=== PATIENT | female | born 1950 | race Caucasian/White ===

== ENCOUNTER 2018-06-14 18:08 | Inpatient (IN) ==
[2018-06-14] MEDS ORDERED: LORazepam 0.5 MG Tablet PO PRN (21:48)
[2018-06-14] MEDS ORDERED: Aluminum/Magnesium/Simethacone Susp 30 ML UDC PO PRN (21:48)
[2018-06-14] MEDS ORDERED: Acetaminophen 325 MG Tablet PO PRN (21:48)
[2018-06-15] MEDS: lamoTRIgine 25 MG TABLET PO SCH ×2 (10:33→20:58)
[2018-06-15] MEDS: Sertraline 50 MG Tablet PO SCH (10:34)
--- NOTE | 2018-06-15 12:18 | P.HPPSY ---
Provisional Diagnosis Admission Date: June 14, 2018 18:54 Challis I.: Bipolar disorder most recent episode depressed Anxiety disorder unspecified Challis III.: Arthritis Acute urinary tract infection Competence Certification of Person's Competence To Provide Express and Informed Consent I have personally examined Sathya Keane, a person being served at [facility] on, June 15, 2018 1205. Express and informed consent means consent voluntarily given in writing, by a competent person, after sufficient explanation and disclosure of the subject matter involved to enable the person to make a knowing and willful decision without any element of force, fraud, deceit, duress, or other form of constraint or coercion. This person is 18 years of age or older, is not now known to be incompetent to consent to treatment with a guardian advocate, and does not have a health care surrogate or proxy currently making medical treatment decisions. I have found this person to be one of the following: [xxx] Competent to provide express and informed consent, as defined above, for voluntary admission to this facility and is competent to provide express and informed consent for treatment. He/she has the consistent capacity to make well reasoned, willful, and knowing decisions concerning his or her medical or mental health treatment. The person fully and consistently understands the purpose of the admission for examination/placement and is fully capable of personally exercising all rights assured under [place] Incompetent to provide express and informed consent to voluntary admission, and this is incompetent to provide express and informed consent to treatment. The person must be transferred to involuntary status and a petition for a guardian advocate filed with the Circuit Court. [] Refusing to provide express and informed consent to voluntary admission but is competent to provide express and informed consent for treatment. The person must be discharged or transferred to involuntary status. Form shall be completed within 24 hours of a person's arrival at the receiving facility and filed in the clinical record of each person: 1. Admitted on a voluntary basis 2. Permitted to provide express and informed consent to his/her own treatment 3. Allowed to transfer from involuntary to voluntary status 4. Prior to permitting a person to consent to his or her own treatment after having been previously found incompetent to consent to treatment. History of Present Illness Capacity: Has capacity Chief Complaint: Depression with thoughts of ending her life History of Present Illness: The patient is a 68-year-old female who was a direct transfer to [facility] inpatient psych unit from [facility] under a medical physicians Lynch act order for depression and suicidal ideations. According to the Lynch act report, the patient has a history of depression and presented complaining of auditory hallucinations and a plan to hurt her self. Patient reports that it was her son who became concerned and took her to the hospital. The patient admits to "I have been very anxious and nervous I cannot eat and I cannot sleep I have episodes of confusion and racing thoughts and I cannot pinpoint why I am feeling this way." Patient reports that she last felt stable "a few months ago" and cannot recall any specific stress that led to a decrease in her mood. She reports that she did move in with a friend a couple months ago but she reports that the friend and her are getting along fine. She denies any conflict with family and denies any financial stressors. As for her depression, she endorses a worsening depression and irritability over the last 2 months with symptoms of increased need for sleep, decreased interest, increased feelings of hopelessness and helplessness, decreased energy , decreased concentration, decreased appetite, decreased psychomotor activity, and fleeting thoughts that she would rather be . She denies any plans preparations or intent to kill herself. As for anxiety, she reports chronic anxiety characterized as chronic worries and intermittent anxiety attacks with intermittent bouts of a Gilbert phobia. She admits that her anxiety and fear of leaving the house has worsened over the last couple of months. She reports having anxiety attacks daily. As for psychosis, the patient and endorses that she is "hearing things" but she cannot understand what is being said or at least will not admit to it. She denies any paranoid delusions. She denies a history of auditory hallucinations prior to this past month. As for arsalan, patient reports cyclical moods that are mostly depressed but intermittently high moods with increased goal-directed activity decreased need for sleep and increased irritability with others. Patient reports that she feels like she is in 1 of her depressed moods currently. Past psychiatric history: Past Diagnoses: Bipolar disorder, anxiety disorder Hospitalizations: Patient reports 4 prior hospitalizations the last was in 2017 Suicidal behavior: Patient admits to overdose on pills many years ago Past psychotropic medication trials: The patient has most recently been tried on Zoloft 50 mg a day and Lamictal 25 mg twice a day, started approximately 6 weeks ago by her outpatient psychiatrist. Patient is also been treated with Zyprexa and Prozac in the past but were ineffective. She also reports lithium was ineffective. She has allergies to Depakote and Seroquel. Outpatient MH treatment: Patient reports being followed by the [facility] clinic in [place]. She was last seen approximately 4 weeks ago. Substance Use Treatment: Denies Abuse/assault history: Denies Family psychiatric history: Patient's son has PTSD from combat. She denies any history of suicides in her family Psychosocial history: Patient was born and raised in [place] [facility]. 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 She has been and twice and has 2 adult sons. She currently lives with a roommate in the [facility] area. She denies ever being on disability and currently collects income from Social Security. She denies any history of arrests and no acute legal stressors. Substance Use history: Urine drug scree on exam in ED was negative. Tobacco use: Denies Alcohol use: Denies Cannabis use: Denies Stimulant use: Denies Opiate use: Denies Prescription drug abuse: Denies Past medical history: Contributing medical conditions include--arthritic pain and an acute UTI. She denies a history of seizures. Lab results: Lab results from [facility] were reviewed and were significant only for a urinalysis consistent with a urinary tract infection. - Inpatient Certification I certify that the inpatient services were ordered in accordance with Medicare regulations governing the order. This includes certification that hospital inpatient services are reasonable and necessary and in the case of services not specified as inpatient-only under 42 CFR 419.22(n), that they are appropriately provided as inpatient services in accordance to with the 2-midnight benchmark under 43 CFR 412.3(e) I certify that inpatient psychiatric hospital services are medically necessary. Evaluation and treatment and/or diagnostic testing are expected to improve the patient's condition. The patient needs on a daily basis, active treatment furnished directly by or requiring the supervision of inpatient psychiatric facility personnel. Estimated Total Length of Stay (Days): 5 Plans for Post Hospital Care: Home Review of Systems Constitutional: Reports fatigue, Reports weight loss Eyes: Denies change in vision Ears, Nose, Mouth, and Throat: Denies nasal congestion, Denies pain with swallowing Cardiovascular: Denies chest pain, Denies fast heart rate Respiratory: Denies chest congestion, Denies shortness of breath with activity Genitourinary: Reports painful urination Musculoskeletal: Reports joint pain PMFSH - Substance Use History Substance History: No History of Abuse - Substance Use Type Other Comment: Patient denies any past/present history of substance use, denies past/ present use of alcohol and denies past/present use of cigarettes. Medications and Allergies Active Medications: Active Medications Acetaminophen (Tylenol) 650 mg PO Q4H PRN PRN Reason: Pain 1-5 or Temp >101F Al Hydrox/Mg Hydrox/Simethicone (Mag-Al Plus Susp Liq) 30 ml PO Q6H PRN PRN Reason: DYSPEPSIA Al Hydroxide/Mg Hydroxide (Milk Of Magnesia Liq) 30 ml PO DAILY PRN PRN Reason: Mild Constipation Hydroxyzine HCl (Atarax) 50 mg PO Q6H PRN PRN Reason: anxiety or insomnia Lamotrigine (Lamictal) 50 mg PO BID [facility] Last Admin: 06/15/18 10:33 Dose: 50 mg Lorazepam (Ativan) 0.5 mg PO Q12H PRN PRN Reason: MODERATE TO SEVERE ANXIETY Lorazepam (Ativan Inj) 0.5 mg IM Q12H PRN PRN Reason: MODERATE TO SEVERE ANXIETY Lurasidone HCl (Latuda) 20 mg PO DAILY [facility] Last Admin: 06/15/18 10:37 Dose: 20 mg Miscellaneous (Pill Splitter) 1 each [facility] Sertraline HCl (Zoloft) 50 mg PO DAILY [facility] Last Admin: 06/15/18 10:34 Dose: 50 mg Allergies Allergy/AdvReac Type Severity Reaction Status Date / Time aspirin Allergy Severe Nausea/Vomi Verified 06/15/18 10:31 ting diphenhydramine Allergy Severe Hives Verified 06/15/18 10:31 divalproex sodium Allergy Severe Psychosis Verified 06/15/18 10:31 [From Depakote] ibuprofen Allergy Severe Headache Verified 06/15/18 10:31 penicillin G Allergy Severe Hives Verified 06/15/18 10:31 quetiapine [From Seroquel] Allergy Severe Psychosis Verified 06/15/18 10:31 Sulfa (Sulfonamide Allergy Severe Nausea/Vomi Verified 06/15/18 10:31 Antibiotics) ting Home Medications Medication Instructions Recorded Confirmed Type lamotrigine 25 mg PO BID 06/14/18 06/14/18 History sertraline 50 mg PO DAILY 06/14/18 06/14/18 History Results - Labs Labs: Laboratory Results - last 24 hr 06/15/18 05:56 POC Glucose 85 Exam Vital signs: Vital Signs 06/14/18 18:55 06/15/18 05:22 Temperature 98.3 F 97.6 F Pulse Rate 60 66 Respiratory Rate 16 16 Blood Pressure 113/67 103/70 Pulse Oximetry 98 97 Intake & Output 06/14/18 06/15/18 06/15/18 18:59 06:59 18:59 Intake Total 360 / 360 Balance 360 / 360 Weight 63.3 kg 63.3 kg Intake: Oral 360 / 360 Other: Weight On Admission 63.3 kg Mental Status Examination Appearance: Disheveled Consciousness: Alert Orientation: x4 Motor Activity: Normal gait Speech: Hesitant Language: Adequate Fund of Knowledge: Adequate Attention and Concentration: Adequate Memory: Unremarkable Mood: Sad, Anxious Affect: Blunt, Other (Dysphoric) Thought Process & Associations: Intact, Logical, Goal directed Thought Content: Appropriate Hallucination Type: None Delusion Type: None Suicidal Ideation: Yes (Passive) Suicidal Plan: No Suicidal Intention: No Homicidal Ideation: No Insight: Fair Judgment: Impulsive Assessment and Plan - Assessment (1) Bipolar disorder, most recent episode depressed Code(s): F31.30 - Bipolar disorder, current episode depressed, mild or moderate severity, unspecified Status: Acute (2) Anxiety disorder, unspecified Code(s): F41.9 - Anxiety disorder, unspecified Status: Acute - Plan Plan: 1. Continue with admission to inpatient psychiatry at [facility]; convert to voluntary/competent legal status. 2. Routine unit precautions. 3. Comfort medications ordered for as needed treatment of constipation, heartburn, diarrhea, and mild pain. 4. Hydroxyzine 50mg po q6H prn anxiety/insomnia. 5. Restart her Zoloft 50 mg a day. We will stay on this low dose due to her history of bipolar disorder would consider increase after stabilized on a therapeutic dose of a mood stabilizer. 6. Restart her Lamictal and increase to 50 mg twice a day. 7. Start Latuda 20 mg a day for adjunctive treatment of bipolar depression. Consider titration up to 60 mg a day while in the hospital if tolerated. 8. Repeat urinalysis in the morning with in-house culture to evaluate whether the one-time dose of Macrobid in the ER was sufficient. 9. patient will participate in the unit programming to include group therapies , milieu therapy and recreational therapies. 10. Discharge planning: The patient already has established care with the [facility] in [place]. Estimated LOS: 5 days Justification for Continued Inpatient Stay: Patient is a 68-year-old female with a history of bipolar diagnosis with 4 prior hospitalizations and one prior suicide attempt presents with a 2-month history of worsening mood and anxiety that has not responded by her outpatient clinics most recent effort to treat with low-dose Zoloft and Lamictal. Patient is now having severe symptoms of depression with incomplete auditory hallucinations. We discussed risk benefits side effects alternatives and she chooses to continue her Zoloft and Lamictal but titrate to more therapeutic doses and use Latuda as an adjunct treatment for bipolar depression.
[2018-06-15 14:36] LABS: Bacteria,Urine Many /hpf; Bilirubin,Urine Negative (Negative); Clarity,Urine Cloudy (Clear); Color,Urine Amber (Yellw/Straw); Glucose,Urine (UA) Negative (Negative); Leukocyte Esterase,Urine Large (Negative); Mucus,Urine Few /lpf (Occasional); Nitrite,Urine Negative (Negative); Specific Gravity,Urine 1.025 (1.002-1.035); Squamous Epithelial Cell,Urine 19 /hpf (0-5)
[2018-06-16] MEDS: lamoTRIgine 25 MG TABLET PO SCH ×2 (08:21→20:14)
[2018-06-16] MEDS: Sertraline 50 MG Tablet PO SCH (08:23)
[2018-06-16 08:28] LABS: Free T4 (Free Thyroxine) 1.27 ng/dL (0.76-1.46); Thyroid Stimulating Hormone 0.616 uIU/mL (0.358-3.740)
--- NOTE | 2018-06-16 10:11 | P.PNPSY ---
Subjective Chief Complaint: Depression with thoughts of ending her life Remarks: Patient seen for follow-up, chart reviewed, patient discussed with nursing staff ; we reviewed the patient's mood, thoughts, and behaviors from overnight and this morning. Nursing reports patient slept 5 hours overnight and appeared restless. She is described as thought blocking but denies auditory or visual hallucinations and denies suicidal ideations. Patient is also described as seclusive to her room for most of the day yesterday. Patient however was observed on the unit to be pacing the halls and at times sitting in the day room. Patient complains of restlessness and anxiety and requested a as needed. She denies upset stomach dizziness headaches or discomfort since start of current medication profile. She denies dysuria or abdominal pain. She continues to express understanding and satisfaction with the treatment plan. Review of Systems All other systems reviewed negative except as stated in HPI Mental Status Examination Appearance: Disheveled Consciousness: Alert Orientation: x4 Motor Activity: Normal gait Speech: Hesitant Language: Adequate Fund of Knowledge: Adequate Attention and Concentration: Adequate Memory: Unremarkable Mood: Sad, Anxious Affect: Blunt, Other (Dysphoric) Thought Process & Associations: Intact Thought Content: Appropriate, Thought blocking Hallucination Type: None Delusion Type: None Suicidal Ideation: Yes (Passive) Suicidal Plan: No Suicidal Intention: No Homicidal Ideation: No Insight: Fair Judgment: Impulsive Assessment and Plan - Assessment (1) Bipolar disorder, most recent episode depressed Code(s): F31.30 - Bipolar disorder, current episode depressed, mild or moderate severity, unspecified Status: Acute (2) Anxiety disorder, unspecified Code(s): F41.9 - Anxiety disorder, unspecified Status: Acute - Plan Plan: June 15, 2018. Initial assessment and plan: Patient is a 68-year-old female with a history of bipolar diagnosis with 4 prior hospitalizations and one prior suicide attempt presents with a 2-month history of worsening mood and anxiety that has not responded by her outpatient clinics most recent effort to treat with low-dose Zoloft and Lamictal. Patient is now having severe symptoms of depression with incomplete auditory hallucinations. We discussed risk benefits side effects alternatives and she chooses to continue her Zoloft and Lamictal but titrate to more therapeutic doses and use Latuda as an adjunct treatment for bipolar depression. 1. Continue with admission to inpatient psychiatry at [facility]; convert to voluntary/competent legal status. 2. Routine unit precautions. 3. Comfort medications ordered for as needed treatment of constipation, heartburn, diarrhea, and mild pain. 4. Hydroxyzine 50mg po q6H prn anxiety/insomnia. 5. Restart her Zoloft 50 mg a day. We will stay on this low dose due to her history of bipolar disorder would consider increase after stabilized on a therapeutic dose of a mood stabilizer. 6. Restart her Lamictal and increase to 50 mg twice a day. 7. Start Latuda 20 mg a day for adjunctive treatment of bipolar depression. Consider titration up to 60 mg a day while in the hospital if tolerated. 8. Repeat urinalysis in the morning with in-house culture to evaluate whether the one-time dose of Macrobid in the ER was sufficient. 9. patient will participate in the unit programming to include group therapies , milieu therapy and recreational therapies. 10. Discharge planning: The patient already has established care with the [facility] in [place]. Estimated LOS: 5 days June 16, 2018: Unsatisfactory response to initial treatment; the patient has tolerated medication adjustments but she continues to endorse passive suicidal ideations and her thought processes are mildly disorganized with evidence of thought blocking. The patient has been less seclusive with encouragement today but she is complaining of anxiety and requesting as needed anxiolytics. Patient 's repeat urinalysis was significant for extreme elevations in white blood cell counts red blood cell counts and leukoesterase therefore consult placed to hospitalist for evaluation and treatment. Continue inpatient psychiatric treatment and stabilization; voluntary status. Continue Ativan 0.5 mg every 12 hours as needed for anxiety. We will consider increase in dose and frequency if anxiety worsens. Discontinue Atarax as needed for anxiety due to patient's reported allergies to antihistamines. Hospitalist consulted to evaluate severe UTI. Discharge planning: The patient already has established care with the [facility] in [place] Justification for Continued Inpatient Stay: Patient remains an elevated risk for self-harm by self neglect and suicide and therefore will require further inpatient stabilization and preparation of a safe discharge plan. Moving patient to a less restrictive environment at this time may result in decompensation.
--- NOTE | 2018-06-16 13:10 | P.CONIM ---
History of Present Illness Primary Care Provider: UNKNOWN History of Present Illness: his patient is a 68 y/o F with depression, bipolar disorder, who was sent from [facility] under a bakers act for suicidal ideation. She is currently being treated by psychiatry for her mental health issues and the internal medicine team was consulted to evaluate and treat the patient for a suspected urinary tract infection. Review of Systems All other systems reviewed negative except as stated in HPI PMFSH - History History Provided By: Patient - Medical History Medical History: Medical History (Last Updated 06/15/18 @ 15:44 by Mell Adan RN) Bipolar disorder Depression H/O suicide attempt Suicidal ideation - Family History Family History: Family History (Last Updated 06/15/18 @ 15:49 by Mell Adan RN) Mother CHF (congestive heart failure) Father Lung cancer - Tobacco History Second Hand Smoke Exposure: No Tobacco Use In Past 30 Days: No Smoking Status: Never smoker - Alcohol History How Often Do You Have a Drink Containing Alcohol: Never - Substance Use History Substance History: No History of Abuse - Substance Use Type Other Comment: Patient denies any past/present history of substance use, denies past/ present use of alcohol and denies past/present use of cigarettes. - Travel History Recent Travel in the [place] Within the Last 8 Weeks: No Recent Travel Out of the Country Within the Last 8 Weeks: No - Immunization History Tetanus Immunization: Unsure Hx Influenza Vaccine This Season: No Medications and Allergies Active Medications: Active Medications Acetaminophen (Tylenol) 650 mg PO Q4H PRN PRN Reason: Pain 1-5 or Temp >101F Al Hydrox/Mg Hydrox/Simethicone (Mag-Al Plus Susp Liq) 30 ml PO Q6H PRN PRN Reason: DYSPEPSIA Al Hydroxide/Mg Hydroxide (Milk Of Magnesia Liq) 30 ml PO DAILY PRN PRN Reason: Mild Constipation Lamotrigine (Lamictal) 50 mg PO BID [facility] Last Admin: 06/16/18 08:21 Dose: 50 mg Lorazepam (Ativan) 0.5 mg PO Q12H PRN PRN Reason: MODERATE TO SEVERE ANXIETY Lurasidone HCl (Latuda) 20 mg PO DAILY [facility] Last Admin: 06/16/18 08:22 Dose: 20 mg Miscellaneous (Pill Splitter) 1 each OTHER [facility] Sertraline HCl (Zoloft) 50 mg PO DAILY [facility] Last Admin: 06/16/18 08:23 Dose: 50 mg Allergies Allergy/AdvReac Type Severity Reaction Status Date / Time aspirin Allergy Severe Nausea/Vomi Verified 06/15/18 10:31 ting diphenhydramine Allergy Severe Hives Verified 06/15/18 10:31 divalproex sodium Allergy Severe Psychosis Verified 06/15/18 10:31 [From Depakote] ibuprofen Allergy Severe Headache Verified 06/15/18 10:31 penicillin G Allergy Severe Hives Verified 06/15/18 10:31 quetiapine [From Seroquel] Allergy Severe Psychosis Verified 06/15/18 10:31 Sulfa (Sulfonamide Allergy Severe Nausea/Vomi Verified 06/15/18 10:31 Antibiotics) ting hydroxyzine Allergy Unknown Nausea Unverified 06/16/18 09:39 NSAIDS (Non-Steroidal Allergy Headache Verified 06/16/18 09:21 Anti-Inflamma propoxyphene Allergy Nausea/Vomi Verified 06/16/18 09:21 ting Home Medications Medication Instructions Recorded Confirmed Type lamotrigine 25 mg PO BID 06/14/18 06/14/18 History sertraline 50 mg PO DAILY 06/14/18 06/14/18 History Physical Exam Vital signs: Vital Signs 06/15/18 17:30 06/16/18 05:39 Temperature 98.5 F 97.6 F Pulse Rate 70 67 Respiratory Rate 17 17 Blood Pressure 130/67 138/71 Pulse Oximetry 100 97 Intake & Output 06/15/18 06/16/18 06/16/18 18:59 06:59 18:59 Intake Total 840 / 840 Balance 840 / 840 Intake: Oral 840 / 840 Other: Date of Last Bowel Movement 06/15/18 Narrative: alert and oriented, answering my questions and following commands S1S2 CTA b/l no abd pain, soft, nontender, no suprapubic pain no edema of exts Results - Labs Labs: Laboratory Results - last 24 hr 06/15/18 06/15/18 06/15/18 13:15 16:19 21:04 POC Glucose 106 99 TSH Free T4 Urine Color [place] Urine Clarity Cloudy H Urine pH 5.0 Ur Specific [place] 1.025 Urine Protein 100 H Urine Glucose (UA) Negative Urine Ketones Negative Urine Occult Blood Large H Urine Nitrate Negative Urine Bilirubin Negative Urine Urobilinogen Less than 2 Ur Leukocyte Esterase Large H Urine RBC 113 H Urine WBC 132 H Urine WBC Clumps Many H Ur Squamous Epith Cells 19 Urine Bacteria Many H Urine Mucus Few H Micro UA Comment Culture indicated Ur Microscopic Review Not Reportable Urine Culture Comments Culture indicated 06/16/18 06/16/18 06:16 06:50 POC Glucose 99 TSH 0.616 Free T4 1.27 Urine Color Urine Clarity Urine pH Ur Specific [place] Urine Protein Urine Glucose (UA) Urine Ketones Urine Occult Blood Urine Nitrate Urine Bilirubin Urine Urobilinogen Ur Leukocyte Esterase Urine RBC Urine WBC Urine WBC Clumps Ur Squamous Epith Cells Urine Bacteria Urine Mucus Micro UA Comment Ur Microscopic Review Urine Culture Comments Assessment and Plan - Plan This patient is a 68 y/o F with depression, bipolar disorder, who was sent from [facility] under a bakers act for suicidal ideation. She is currently being treated by psychiatry for her mental health issues and the internal medicine team was consulted to evaluate and treat the patient for a suspected urinary tract infection. 1. UTI Patient has no complaints of dysuria at the moment, no urinary frequency. No fevers, wbc count is normal. U/A shows findings consistent with a UTI however the sample show a lot of epithelial cells, possibly bad sample Will repeat the U/A and culture. If u/a is positive we will start her on antibiotics. 2. Depression, Bipolar disorder, Suicidal ideation. Patient is in the psych unit under the care of the psychiatrist Continue management as per psychiatry. I will follow up on the u/a studies today.
[2018-06-16 14:51] LABS: Bacteria,Urine Many /hpf; Bilirubin,Urine Negative (Negative); Clarity,Urine Turbid (Clear); Color,Urine Yellow (Yellw/Straw); Glucose,Urine (UA) Negative (Negative); Leukocyte Esterase,Urine Large (Negative); Mucus,Urine Many /lpf (Occasional); Nitrite,Urine Positive (Negative); Specific Gravity,Urine 1.024 (1.002-1.035); Squamous Epithelial Cell,Urine 96 /hpf (0-5)
[2018-06-16 15:25] LABS: Baso # (Auto) 0.1 th/mm3 (0.0-0.2); Baso % (Auto) 0.7 % (0.0-2.0); Eos # (Auto) 0.1 th/mm3 (0.0-0.4); Eos % (Auto) 1.1 % (0.0-4.0); Hematocrit 39.6 % (35.0-46.0); Hemoglobin 13.4 gm/dL (11.6-15.3); Lymph # (Auto) 1.6 th/mm3 (1.0-4.8); Lymph % (Auto) 19.5 % (9.0-44.0); Mean Corpuscular HGB Conc 33.8 % (32.0-36.0); Mean Corpuscular Hemoglobin 30.3 pg (27.0-34.0); Mean Corpuscular Volume 89.7 fL (80.0-100.0); Mean Platelet Volume 9.3 fL (7.0-11.0); Mono # (Auto) 0.6 th/mm3 (0.0-0.9); Mono % (Auto) 7.2 % (0.0-8.0); Neut # (Auto) 5.9 th/mm3 (1.8-7.7); Neut % (Auto) 71.5 % (16.0-70.0); Platelet Count 285 th/mm3 (150-450); Red Blood Count 4.41 mil/mm3 (4.00-5.30); Red Cell Distribution Width 15.4 % (11.6-17.2); White Blood Count 8.3 th/mm3 (4.0-11.0)
[2018-06-16 16:00] LABS: Calcium 9.4 mg/dL (8.5-10.1); Carbon Dioxide 22.3 meq/L (21.0-32.0); Potassium 3.9 meq/L (3.5-5.1)
[2018-06-16] MEDS: LORazepam 0.5 MG Tablet PO PRN (19:10)
[2018-06-17] MEDS: Sertraline 50 MG Tablet PO SCH (08:39)
[2018-06-17] MEDS: lamoTRIgine 25 MG TABLET PO SCH ×2 (08:39→20:47)
--- NOTE | 2018-06-17 10:13 | P.PNPSY ---
Subjective Chief Complaint: Depression with thoughts of ending her life Remarks: Patient seen for follow-up, chart reviewed, patient discussed with nursing staff ; we reviewed the patient's mood, thoughts, and behaviors from overnight and this morning. Nursing reports the patient had difficulty falling asleep and got 6 hours of rest overnight. Evening shift nurse reports the patient was anxiously dwelling on the cost of her treatment but seemed to respond to Ativan 0.5 mg given as needed. The patient was seen pacing in her bedroom this morning after breakfast. She was much more talkative with provider and there is no signs of thought blocking. The patient was focused on her worries about the payment for her care. The patient seemed concerned that she does not "really have medical care" but was reassured that it has been verified. Patient was asked about her difficulty falling asleep and we discussed possible options to help to include melatonin or a traditional sleep aid but she reports having confidence that she can use relaxation techniques to fall asleep. Patient reports that she is tolerating her medications and denies any physical side effects. She denies any homicidal or suicidal ideations and she denies any hallucinations. We discussed discharge planning with the possibility of discharge by the end of the week and she expressed some nonspecific mild concern that she will not be ready for discharge by end of week. Mental Status Examination Appearance: Disheveled Consciousness: Alert Orientation: x4 Motor Activity: Normal gait Speech: Unremarkable Language: Adequate Fund of Knowledge: Adequate Attention and Concentration: Adequate Memory: Unremarkable Mood: Sad, Anxious Affect: Blunt, Other (Dysphoric) Thought Process & Associations: Intact, Goal directed Thought Content: Appropriate, Preoccupations, Other (Fixed suspicions that Medicare will not pay for her care) Hallucination Type: None Delusion Type: None Suicidal Ideation: No Suicidal Plan: No Suicidal Intention: No Homicidal Ideation: No Insight: Fair Judgment: Impulsive Assessment and Plan - Assessment (1) Bipolar disorder, most recent episode depressed Code(s): F31.30 - Bipolar disorder, current episode depressed, mild or moderate severity, unspecified Status: Acute (2) Anxiety disorder, unspecified Code(s): F41.9 - Anxiety disorder, unspecified Status: Acute - Plan Plan: June 15, 2018. Initial assessment and plan: Patient is a 68-year-old female with a history of bipolar diagnosis with 4 prior hospitalizations and one prior suicide attempt presents with a 2-month history of worsening mood and anxiety that has not responded by her outpatient clinics most recent effort to treat with low-dose Zoloft and Lamictal. Patient is now having severe symptoms of depression with incomplete auditory hallucinations. We discussed risk benefits side effects alternatives and she chooses to continue her Zoloft and Lamictal but titrate to more therapeutic doses and use Latuda as an adjunct treatment for bipolar depression. 1. Continue with admission to inpatient psychiatry at [facility]; convert to voluntary/competent legal status. 2. Routine unit precautions. 3. Comfort medications ordered for as needed treatment of constipation, heartburn, diarrhea, and mild pain. 4. Hydroxyzine 50mg po q6H prn anxiety/insomnia. 5. Restart her Zoloft 50 mg a day. We will stay on this low dose due to her history of bipolar disorder would consider increase after stabilized on a therapeutic dose of a mood stabilizer. 6. Restart her Lamictal and increase to 50 mg twice a day. 7. Start Latuda 20 mg a day for adjunctive treatment of bipolar depression. Consider titration up to 60 mg a day while in the hospital if tolerated. 8. Repeat urinalysis in the morning with in-house culture to evaluate whether the one-time dose of Macrobid in the ER was sufficient. 9. patient will participate in the unit programming to include group therapies , milieu therapy and recreational therapies. 10. Discharge planning: The patient already has established care with the [facility] in [place]. Estimated LOS: 5 days June 16, 2018: Unsatisfactory response to initial treatment; the patient has tolerated medication adjustments but she continues to endorse passive suicidal ideations and her thought processes are mildly disorganized with evidence of thought blocking. The patient has been less seclusive with encouragement today but she is complaining of anxiety and requesting as needed anxiolytics. Patient 's repeat urinalysis was significant for extreme elevations in white blood cell counts red blood cell counts and leukoesterase therefore consult placed to hospitalist for evaluation and treatment. Continue inpatient psychiatric treatment and stabilization; voluntary status. Continue Ativan 0.5 mg every 12 hours as needed for anxiety. We will consider increase in dose and frequency if anxiety worsens. Discontinue Atarax as needed for anxiety due to patient's reported allergies to antihistamines. Hospitalist consulted to evaluate severe UTI. Discharge planning: The patient already has established care with the [facility] in [place] June 17, 2018: Fair response to treatment, the patient's thoughts were much more organized and thought blocking resolved but her increased speech now reveals some paranoid beliefs that her hospital care will not be paid for by Medicare. She is minimally responsive to reassurance but otherwise is satisfied with her care. No significant improvement in mood but she is denying suicidal ideations. Continue inpatient psychiatric treatment and stabilization; voluntary status. Continue Ativan 0.5 mg every 12 hours as needed for anxiety. We will consider increase in dose and frequency if anxiety worsens. Continue Lamictal 50 mg twice a day with next dose increase expected for June 22. Increase Latuda to 40 mg/day for adjunctive treatment of bipolar depression. Most recent urinalysis indicated likely contaminants therefore it will be repeated and cultured per recommendation by hospitalist. Discharge planning: The patient already has established care with the [facility] in [place] Justification for Continued Inpatient Stay: Patient remains an elevated risk for self-harm by self neglect and self- injurious behavior and will require further inpatient stabilization and preparation of a safe discharge plan. Moving patient to a less restrictive environment at this time may result in decompensation.
--- NOTE | 2018-06-17 16:00 | P.PNIM ---
Subjective Interval history: Follow up for UTI symptoms, depression and anxiety. Pt seen and examined sitting in the chair, stated have some increase in anxiety and depression. Pt denies any thoughts of hurting herself. Patient denies any fever or chills, denies any abdominal pain or pain in urination. Stated sometimes she does. Physical Exam Vital signs: Vital Signs 06/16/18 16:52 06/17/18 05:17 Temperature 98.2 F 97.5 F L Pulse Rate 79 69 Respiratory Rate 18 18 Blood Pressure 141/90 H 147/75 H Pulse Oximetry 98 98 Narrative: GENERAL: well developed, well nourished female in no acute distress SKIN: Warm and dry. HEAD: Atraumatic. Normocephalic. NECK: Trachea midline. No JVD. CARDIOVASCULAR: Regular rate and rhythm. RESPIRATORY: No accessory muscle use. Clear to auscultation. Breath sounds equal bilaterally. GASTROINTESTINAL: Abdomen soft, non-tender, nondistended. Hepatic and splenic margins not palpable. MUSCULOSKELETAL: Extremities without clubbing, cyanosis, or edema. No obvious deformities. NEUROLOGICAL: Awake and alert and oriented x 3. No obvious cranial nerve deficits. Motor grossly within normal limits. Five out of 5 muscle strength in the arms and legs. Normal speech. PSYCHIATRIC: flat and pleasant mood and affect Results Labs CBC & Chem 7: 06/16/18 14:42 06/16/18 14:42 Labs: Microbiology 06/16/18 14:29 Clean Catch Urine Urine Culture - Preliminary gram negative rods Assessment and Plan Plan This patient is a 68 y/o Female with PMH depression, bipolar disorder , who was sent from [facility] under a [employer] act for suicidal ideation. She is currently being treated by psychiatry for her mental health issues and the internal medicine team was consulted to evaluate and treat the patient for a suspected urinary tract infection. UTI Patient has no complaints of dysuria at the moment, no urinary frequency. No fevers, wbc count is normal. U/A shows findings consistent with a UTI however the sample show a lot of epithelial cells, possibly bad sample - repeat the U/A and culture: > 100,000 gram negative rods, prudence to follow - with recent confusion, increase in anxiety and depression -will start patient on Cipro, awaiting for the C & S -monitor for signs and symptoms Depression Bipolar disorder Suicidal ideation Patient is in the psych unit under the care of the psychiatrist Continue management as per psychiatry DVT Proph: patient is ambulatory We will sign off but available as needed. Thank you for your consultation. Discussed Condition With: patient and nurse Discharge Planning: Discharge disposition per Primary Team Progress Note: Quality VTE Deep Vein Thrombosis/Pulmonary Embolism Present on Admission: No
[2018-06-17] MEDS: LORazepam 0.5 MG Tablet PO PRN (20:47)
[2018-06-17] MEDS: Ciprofloxacin 500 MG Tablet PO SCH (20:47)
[2018-06-18] MEDS: Ciprofloxacin 500 MG Tablet PO SCH (08:31)
[2018-06-18] MEDS: lamoTRIgine 25 MG TABLET PO SCH ×2 (08:31→20:53)
[2018-06-18] MEDS: Sertraline 50 MG Tablet PO SCH (08:31)
--- NOTE | 2018-06-18 11:06 | P.PNPSY ---
Subjective Chief Complaint: Depression with thoughts of ending her life Remarks: June 18, 2018 Subjective: Patient seen and discussed with staff chart reviewed. Patient denies having any symptoms of UTI. Does feel that she is improving however she home additional time prior to discharge to "allow her to become accustomed to the medications." Patient does present rather solemn. She has no difficulty with memory at present time but states that she does have trouble recalling dates and was not able to recall the last time she was depressed or how long it took her to began to experience relief from the the depression. Review of Systems Denies new symptoms on the ROS Mental Status Examination Appearance: Disheveled Consciousness: Alert Orientation: x4 Motor Activity: Normal gait Speech: Unremarkable Language: Adequate Fund of Knowledge: Adequate Attention and Concentration: Adequate Memory: Unremarkable Mood: Sad, Anxious Affect: Blunt, Other (Dysphoric) Thought Process & Associations: Intact, Goal directed Thought Content: Appropriate, Preoccupations, Other (Fixed suspicions that Medicare will not pay for her care) Hallucination Type: None Delusion Type: None Suicidal Ideation: No Suicidal Plan: No Suicidal Intention: No Homicidal Ideation: No Insight: Fair Judgment: Impulsive Assessment and Plan - Assessment (1) Bipolar disorder, most recent episode depressed Code(s): F31.30 - Bipolar disorder, current episode depressed, mild or moderate severity, unspecified Status: Acute (2) Anxiety disorder, unspecified Code(s): F41.9 - Anxiety disorder, unspecified Status: Acute - Plan Plan: June 15, 2018. Initial assessment and plan: Patient is a 68-year-old female with a history of bipolar diagnosis with 4 prior hospitalizations and one prior suicide attempt presents with a 2-month history of worsening mood and anxiety that has not responded by her outpatient clinics most recent effort to treat with low-dose Zoloft and Lamictal. Patient is now having severe symptoms of depression with incomplete auditory hallucinations. We discussed risk benefits side effects alternatives and she chooses to continue her Zoloft and Lamictal but titrate to more therapeutic doses and use Latuda as an adjunct treatment for bipolar depression. 1. Continue with admission to inpatient psychiatry at [facility]; convert to voluntary/competent legal status. 2. Routine unit precautions. 3. Comfort medications ordered for as needed treatment of constipation, heartburn, diarrhea, and mild pain. 4. Hydroxyzine 50mg po q6H prn anxiety/insomnia. 5. Restart her Zoloft 50 mg a day. We will stay on this low dose due to her history of bipolar disorder would consider increase after stabilized on a therapeutic dose of a mood stabilizer. 6. Restart her Lamictal and increase to 50 mg twice a day. 7. Start Latuda 20 mg a day for adjunctive treatment of bipolar depression. Consider titration up to 60 mg a day while in the hospital if tolerated. 8. Repeat urinalysis in the morning with in-house culture to evaluate whether the one-time dose of Macrobid in the ER was sufficient. 9. patient will participate in the unit programming to include group therapies , milieu therapy and recreational therapies. 10. Discharge planning: The patient already [facility] [place]. Estimated LOS: 5 days June 16, 2018: Unsatisfactory response to initial treatment; the patient has tolerated medication adjustments but she continues to endorse passive suicidal ideations and her thought processes are mildly disorganized with evidence of thought blocking. The patient has been less seclusive with encouragement today but she is complaining of anxiety and requesting as needed anxiolytics. Patient 's repeat urinalysis was significant for extreme elevations in white blood cell counts red blood cell counts and leukoesterase therefore consult placed to hospitalist for evaluation and treatment. Continue inpatient psychiatric treatment and stabilization; voluntary status. Continue Ativan 0.5 mg every 12 hours as needed for anxiety. We will consider increase in dose and frequency if anxiety worsens. Discontinue Atarax as needed for anxiety due to patient's reported allergies to antihistamines. Hospitalist consulted to evaluate severe UTI. Discharge planning: The patient already has established care with the [facility] in [place] June 17, 2018: Fair response to treatment, the patient's thoughts were much more organized and thought blocking resolved but her increased speech now reveals some paranoid beliefs that her hospital care will not be paid for by Medicare. She is minimally responsive to reassurance but otherwise is satisfied with her care. No significant improvement in mood but she is denying suicidal ideations. Continue inpatient psychiatric treatment and stabilization; voluntary status. Continue Ativan 0.5 mg every 12 hours as needed for anxiety. We will consider increase in dose and frequency if anxiety worsens. Continue Lamictal 50 mg twice a day with next dose increase expected for June 22. Increase Latuda to 40 mg/day for adjunctive treatment of bipolar depression. Most recent urinalysis indicated likely contaminants therefore it will be repeated and cultured per recommendation by hospitalist. Discharge planning: The patient already has established care with the [facility] clinic in [place] Justification for Continued Inpatient Stay: Patient remains at risk for decompensation.
[2018-06-18] MEDS: Nitrofurantoin Monohydrate-Macrocrystal 100 MG Capsule PO SCH (17:38)
[2018-06-18] MEDS: LORazepam 0.5 MG Tablet PO PRN (20:53)
[2018-06-19] MEDS: Sertraline 50 MG Tablet PO SCH (09:20)
[2018-06-19] MEDS: lamoTRIgine 25 MG TABLET PO SCH ×2 (09:20→20:22)
[2018-06-19] MEDS: Nitrofurantoin Monohydrate-Macrocrystal 100 MG Capsule PO SCH ×2 (09:20→17:59)
--- NOTE | 2018-06-19 15:37 | P.PNPSY ---
Subjective Chief Complaint: Depression with thoughts of ending her life Remarks: Patient seen for follow-up, chart reviewed, patient discussed with nursing staff ; we reviewed the patient's mood, thoughts, and behaviors from overnight and this morning. Nurse reports the patient slept 6 hours overnight. She is described as anxious and guarded and restless during sleep. Patient also complained of recent decrease in appetite. Patient denies any suicidal or homicidal ideations and she denies any auditory or visual hallucinations. Patient was observed throughout the day to be participating actively in the group therapies. Patient was eventually seen at bedside in the afternoon where she sat up quickly and verbalized that she is feeling better and is having more energy but took a short nap this afternoon. We discussed her difficulty sleeping at night and her complaints of decreased appetite but she chooses not to treat and would rather observe for resolution. She reports tolerability of her medications and she feels like there is been definite improvement but she remains reluctant for discharge as she is concerned for relapse or worsening symptoms if she is discharged to soon. We discussed the plan for continued treatment over the weekend with anticipate discharge on Friday and she is agreeable. Mental Status Examination Appearance: Disheveled Consciousness: Alert Orientation: x4 Motor Activity: Normal gait Speech: Unremarkable Language: Adequate Fund of Knowledge: Adequate Attention and Concentration: Adequate Memory: Unremarkable Mood: Anxious Affect: Blunt Thought Process & Associations: Intact, Goal directed Thought Content: Appropriate Hallucination Type: None Delusion Type: None Suicidal Ideation: No Suicidal Plan: No Suicidal Intention: No Homicidal Ideation: No Insight: Fair Judgment: Impulsive Assessment and Plan - Assessment (1) Bipolar disorder, most recent episode depressed Code(s): F31.30 - Bipolar disorder, current episode depressed, mild or moderate severity, unspecified Status: Acute (2) Anxiety disorder, unspecified Code(s): F41.9 - Anxiety disorder, unspecified Status: Acute - Plan Plan: June 19, 2018: Good response to treatment, the patient is much more active her affect is brighter and she is verbalizing organized and coherent thoughts. Patient remains anxious and concerned about the stability of her mood and condition therefore she will be continued on the current treatment and observe through the weekend with anticipated discharge for Friday. Continue inpatient psychiatric treatment and stabilization, voluntary status. Continue current medications unchanged would anticipate increase of Lamictal dose 250 mg at bedtime on Friday. Discharge planning: Patient will return to her regular outpatient mental health clinic for discharge follow-up appointments within 1 week of discharge. Justification for Continued Inpatient Stay: Patient remains an elevated risk for self-harm by self neglect and will require further inpatient stabilization and preparation of a safe discharge plan. Moving patient to a less restrictive environment at this time may result in decompensation.
[2018-06-20] MEDS: Nitrofurantoin Monohydrate-Macrocrystal 100 MG Capsule PO SCH ×2 (09:03→17:00)
[2018-06-20] MEDS: Sertraline 50 MG Tablet PO SCH (09:03)
[2018-06-20] MEDS: lamoTRIgine 25 MG TABLET PO SCH ×2 (09:03→20:52)
--- NOTE | 2018-06-20 14:02 | P.PNPSY ---
Subjective Chief Complaint: Depression with thoughts of ending her life Remarks: Patient was seen and case discussed with nursing. We discussed all of patient' s recent stressors. She describes her mood today as "kind of ugh." She denies suicidal or homicidal ideation with plan. She is social with her peers and cooperating with psychotherapy group Review of Systems All other systems reviewed negative except as stated in HPI Mental Status Examination Appearance: Disheveled Consciousness: Alert Orientation: x4 Motor Activity: Normal gait Speech: Unremarkable Language: Adequate Fund of Knowledge: Adequate Attention and Concentration: Adequate Memory: Unremarkable Mood: Anxious Affect: Blunt Thought Process & Associations: Intact, Goal directed Thought Content: Appropriate Hallucination Type: None Delusion Type: None Suicidal Ideation: No Suicidal Plan: No Suicidal Intention: No Homicidal Ideation: No Insight: Fair Judgment: Impulsive Assessment and Plan - Assessment (1) Bipolar disorder, most recent episode depressed Code(s): F31.30 - Bipolar disorder, current episode depressed, mild or moderate severity, unspecified Status: Acute (2) Anxiety disorder, unspecified Code(s): F41.9 - Anxiety disorder, unspecified Status: Acute - Plan Plan: Continue current treatment plan Justification for Continued Inpatient Stay: Patient would decompensate in a less restrictive setting
[2018-06-21] MEDS: Nitrofurantoin Monohydrate-Macrocrystal 100 MG Capsule PO SCH ×2 (08:57→19:30)
[2018-06-21] MEDS: lamoTRIgine 25 MG TABLET PO SCH ×2 (08:57→21:33)
[2018-06-21] MEDS: Sertraline 50 MG Tablet PO SCH (08:57)
--- NOTE | 2018-06-21 11:52 | P.PNPSY ---
Subjective Chief Complaint: Depression with thoughts of ending her life Remarks: Patient was seen and case discussed with nursing. Patient is complaining of poor sleep though she refuses medication for sleep. Getting along well with her roommate. Describes her mood today as "kind of down." She does get out of her room and is eating well. She denies suicidal or homicidal ideation intent or plan. Compliant with medications Review of Systems All other systems reviewed negative except as stated in HPI Mental Status Examination Appearance: Disheveled Consciousness: Alert Orientation: x4 Motor Activity: Normal gait Speech: Unremarkable Language: Adequate Fund of Knowledge: Adequate Attention and Concentration: Adequate Memory: Unremarkable Mood: Anxious Affect: Blunt Thought Process & Associations: Intact, Goal directed Thought Content: Appropriate Hallucination Type: None Delusion Type: None Suicidal Ideation: No Suicidal Plan: No Suicidal Intention: No Homicidal Ideation: No Insight: Fair Judgment: Impulsive Assessment and Plan - Assessment (1) Bipolar disorder, most recent episode depressed Code(s): F31.30 - Bipolar disorder, current episode depressed, mild or moderate severity, unspecified Status: Acute (2) Anxiety disorder, unspecified Code(s): F41.9 - Anxiety disorder, unspecified Status: Acute - Plan Plan: Continue current treatment plan Justification for Continued Inpatient Stay: Patient would decompensate in a less restrictive setting
[2018-06-22] MEDS: lamoTRIgine 25 MG TABLET PO SCH (08:27)
[2018-06-22] MEDS: Nitrofurantoin Monohydrate-Macrocrystal 100 MG Capsule PO SCH ×2 (08:28→17:46)
[2018-06-22] MEDS: Sertraline 50 MG Tablet PO SCH (08:28)
--- NOTE | 2018-06-22 13:46 | P.PNPSY ---
Subjective Chief Complaint: Depression with thoughts of ending her life Remarks: Patient seen for follow-up, chart reviewed, patient discussed with nursing staff ; we reviewed the patient's mood, thoughts, and behaviors from overnight and this morning. Nurse reports the patient is sleeping approximately 6 hours overnight but complains of restlessness but refuses sleep aids as needed. She has been more visible on the unit and interacting with peers. She denies suicidal ideations. The patient was seen sitting in the day room after breakfast. She complains of severe worries, nonspecific, and requests continuation of her inpatient stay until the anxiety further decreases. She is denying any homicidal or suicidal ideations and hallucinations. She denies irrational worries about her ability to pay for care. The patient was reassured that her worries and anxiety should be easier to control with continuation of treatment and we agreed to postpone discharge until later this week. Mental Status Examination Appearance: Disheveled Consciousness: Alert Orientation: x4 Motor Activity: Normal gait Speech: Unremarkable Language: Adequate Fund of Knowledge: Adequate Attention and Concentration: Adequate Memory: Unremarkable Mood: Anxious Affect: Blunt Thought Process & Associations: Intact, Goal directed Thought Content: Appropriate Hallucination Type: None Delusion Type: None Suicidal Ideation: No Suicidal Plan: No Suicidal Intention: No Homicidal Ideation: No Insight: Fair Judgment: Impulsive Assessment and Plan - Assessment (1) Bipolar disorder, most recent episode depressed Code(s): F31.30 - Bipolar disorder, current episode depressed, mild or moderate severity, unspecified Status: Acute (2) Anxiety disorder, unspecified Code(s): F41.9 - Anxiety disorder, unspecified Status: Acute - Plan Plan: June 22, 2018: Good response to treatment, she is tolerating medication changes and her thought processes are much more organized and her activity level seems to be normalizing. Her complaints of severe anxiety would seem to be part of a chronic neuroses but the patient reports the intensity still remains above baseline she is fearful of recurrence of suicidal ideations if discharged too soon. Continue inpatient psychiatric treatment and stabilization. Increase Lamictal to 150 mg at bedtime per titration schedule for treatment of bipolar depression. Continue Latuda 40 mg a day for treatment of bipolar depression. Continue Zoloft 50 mg/day for treatment of anxiety but anticipate further increase to 100 mg a day once she is stabilized on full doses of her mood stabilizers. Discharge planning: The patient will return home after discharge and follow-up with [facility] in [facility]. Anticipate discharge by the end of the week. Justification for Continued Inpatient Stay: Patient remains an elevated risk for self-harm by self neglect and a return of suicidal ideations in response to being overwhelmed by anxiety and depression and therefore will require further inpatient stabilization and preparation of a safe discharge plan. Moving patient to a less restrictive environment at this time may result in decompensation.
[2018-06-22] MEDS: lamoTRIgine 100 MG Tablet PO SCH (20:51)
[2018-06-23] MEDS: Nitrofurantoin Monohydrate-Macrocrystal 100 MG Capsule PO SCH ×2 (08:07→17:38)
[2018-06-23] MEDS: Sertraline 50 MG Tablet PO SCH (08:07)
[2018-06-23] MEDS: LORazepam 0.5 MG Tablet PO PRN (09:00)
--- NOTE | 2018-06-23 11:40 | P.PNPSY ---
Subjective Chief Complaint: Depression with thoughts of ending her life Remarks: Patient seen for follow-up, chart reviewed, patient discussed with nursing staff ; we reviewed the patient's mood, thoughts, and behaviors from overnight and this morning. Nurse reports that the patient continues to have restless sleep and gets approximately 6 hours overnight. This morning she awoke and was nauseous and had one episode of vomitus. She was prescribed Zofran 4 mg every 6 hours as needed and allowed to return to bedrest. Patient seen at bed side this morning and she reports stable mood but continued anxiety about the uncertainty of her future. She feels like she tolerated the Lamictal increase last night and she was reassured by knowing that other patients on the unit had become nauseous this morning and it is unlikely a side effect of her medication. Patient denies suicidal or homicidal ideations but is not feeling confident with a potential discharge for today we will continue to make efforts for discharge later this week. Mental Status Examination Appearance: Disheveled Consciousness: Alert Orientation: x4 Motor Activity: Normal gait Speech: Unremarkable Language: Adequate Fund of Knowledge: Adequate Attention and Concentration: Adequate Memory: Unremarkable Mood: Anxious Affect: Blunt Thought Process & Associations: Intact, Goal directed Thought Content: Appropriate Hallucination Type: None Delusion Type: None Suicidal Ideation: No Suicidal Plan: No Suicidal Intention: No Homicidal Ideation: No Insight: Fair Judgment: Impulsive Assessment and Plan - Assessment (1) Bipolar disorder, most recent episode depressed Code(s): F31.30 - Bipolar disorder, current episode depressed, mild or moderate severity, unspecified Status: Acute (2) Anxiety disorder, unspecified Code(s): F41.9 - Anxiety disorder, unspecified Status: Acute - Plan Plan: June 22, 2018: Good response to treatment, she is tolerating medication changes and her thought processes are much more organized and her activity level seems to be normalizing. Her complaints of severe anxiety would seem to be part of a chronic neuroses but the patient reports the intensity still remains above baseline she is fearful of recurrence of suicidal ideations if discharged too soon. Continue inpatient psychiatric treatment and stabilization. Increase Lamictal to 150 mg at bedtime per titration schedule for treatment of bipolar depression. Continue Latuda 40 mg a day for treatment of bipolar depression. Continue Zoloft 50 mg/day for treatment of anxiety but anticipate further increase to 100 mg a day once she is stabilized on full doses of her mood stabilizers. Discharge planning: The patient will return home after discharge and follow-up with [facility] in [facility]. Anticipate discharge by the end of the week. June 23, 2018: Patient's mood and affect remains stable but anxiety remains high and she would likely benefit from eventual increase of her SSRI but given today's GI upset we will wait until tomorrow to reconsider an increase of the Zoloft dose. Continue inpatient psychiatric treatment and stabilization. Anticipate discharge or Friday with follow-up at her regular outpatient mental health clinic. Justification for Continued Inpatient Stay: Patient remains an elevated risk for self-harm by self neglect and will require further inpatient stabilization and preparation of a safe discharge plan. Moving patient to a less restrictive environment at this time may result in decompensation.
[2018-06-23] MEDS: lamoTRIgine 100 MG Tablet PO SCH (20:34)
--- NOTE | 2018-06-24 08:26 | P.TTN ---
- Patient Problems Problems: 1. Discharge planning 2. Medication compliance 3. Knowledge deficit 4. Lack of coping skills - Progress Toward Goals Provider Present: Other Provider Input: 06/23/18 Patient continues to have restless nights. Med compliant. Continue with treatment. Nurse Input: 06/23/18 Patient is med compliant no behavioral problem on unit, restless sleeping Psychiatric Counselors Present: Gemma Devine [facility] Psychiatric Therapist Input: 06/23/18 Patient presenting better. Will go home when discharged. Patient is med compliant. Group Spec/RT/OT/DONALD Present: SHABANA Sesay Group Spec/RT/OT/DONALD Input: 06/23/18 Patient does attend groups appropriately. - Documentation Teaching Recipient: Patient
[2018-06-24] MEDS: Sertraline 50 MG Tablet PO SCH (09:31)
[2018-06-24] MEDS: Nitrofurantoin Monohydrate-Macrocrystal 100 MG Capsule PO SCH ×2 (09:31→17:06)
[2018-06-24] MEDS: Sertraline 100 MG Tablet PO SCH (11:34)
--- NOTE | 2018-06-24 11:34 | P.PNPSY ---
Subjective Chief Complaint: Depression with thoughts of ending her life Remarks: Patient seen for follow-up, chart reviewed, patient discussed with nursing staff ; we reviewed the patient's mood, thoughts, and behaviors from overnight and this morning. Nurse reports that the patient slept 7 hours overnight and seemed to be more restful. Patient was seen sitting in the day room quietly watching TV. She reports feeling better and sleeping better but continues to complain of severe worries and a lack of confidence about being discharged home. Empathic listening was provided as well as clarification of treatment goals and the patient agreed with the goal of discharge on Friday but the treatment team will continue to work with her to ensure her safety and positive response to treatment. She reports no further nausea or GI distress. Mental Status Examination Appearance: Disheveled Consciousness: Alert Orientation: x4 Motor Activity: Normal gait Speech: Unremarkable Language: Adequate Fund of Knowledge: Adequate Attention and Concentration: Adequate Memory: Unremarkable Mood: Anxious Affect: Blunt Thought Process & Associations: Intact, Goal directed Thought Content: Appropriate Hallucination Type: None Delusion Type: None Suicidal Ideation: No Suicidal Plan: No Suicidal Intention: No Homicidal Ideation: No Insight: Fair Judgment: Impulsive Assessment and Plan - Assessment (1) Bipolar disorder, most recent episode depressed Code(s): F31.30 - Bipolar disorder, current episode depressed, mild or moderate severity, unspecified Status: Acute (2) Anxiety disorder, unspecified Code(s): F41.9 - Anxiety disorder, unspecified Status: Acute - Plan Plan: June 22, 2018: Good response to treatment, she is tolerating medication changes and her thought processes are much more organized and her activity level seems to be normalizing. Her complaints of severe anxiety would seem to be part of a chronic neuroses but the patient reports the intensity still remains above baseline she is fearful of recurrence of suicidal ideations if discharged too soon. Continue inpatient psychiatric treatment and stabilization. Increase Lamictal to 150 mg at bedtime per titration schedule for treatment of bipolar depression. Continue Latuda 40 mg a day for treatment of bipolar depression. Continue Zoloft 50 mg/day for treatment of anxiety but anticipate further increase to 100 mg a day once she is stabilized on full doses of her mood stabilizers. Discharge planning: The patient will return home after discharge and follow-up with [facility] in [facility]. Anticipate discharge by the end of the week. June 23, 2018: Patient's mood and affect remains stable but anxiety remains high and she would likely benefit from eventual increase of her SSRI but given today's GI upset we will wait until tomorrow to reconsider an increase of the Zoloft dose. Continue inpatient psychiatric treatment and stabilization. Anticipate discharge or Friday with follow-up at her regular outpatient mental health clinic. June 24, 2018: Good response to treatment as the patient's behavior is much more active and likely at her baseline but she continues to complain of severe anxiety that is most likely chronic but will require continued titration of her medications and supportive treatment while an inpatient in order to improve her confidence and motivation and further mitigate risks of recurrence as an outpatient. Continue inpatient psychiatric treatment and stabilization. Increase Zoloft to 100 mg/day for treatment of anxiety and depression. Anticipate discharge by Friday with follow-up at her regular outpatient mental health clinic. Justification for Continued Inpatient Stay: Patient remains an elevated risk for self-harm by self neglect and recurrence of depression with suicidal ideations and therefore will require further inpatient stabilization and preparation of a safe discharge plan. Moving patient to a less restrictive environment at this time may result in decompensation.
[2018-06-24] MEDS: lamoTRIgine 100 MG Tablet PO SCH (21:30)
[2018-06-25] MEDS: Sertraline 100 MG Tablet PO SCH (10:10)
[2018-06-25] MEDS: Nitrofurantoin Monohydrate-Macrocrystal 100 MG Capsule PO SCH (10:10)
--- NOTE | 2018-06-25 11:51 | P.PNPSY ---
Subjective Chief Complaint: Depression with thoughts of ending her life Remarks: Patient seen for follow-up, chart reviewed, patient discussed with nursing staff ; we reviewed the patient's mood, thoughts, and behaviors from overnight and this morning. Nursing reports the patient slept 8 hours overnight. She is described as pleasant and visible on the unit but does complain to nursing that her mood has been up and down but denies suicidal ideations. Patient was seen sitting calmly in the day room with her peers after breakfast. She immediately complains of experiencing severe anxiety but on clarification questions the patient is unable to give specific thoughts or worries that are triggering her anxiety. She did seem to indicate that she is feeling shaky on the inside and restless. We discussed risks benefits side effects and alternative treatments of possible EPS from her Latuda and she chooses a trial of Cogentin. Patient has tolerated the increased dose of Zoloft without GI distress. The patient is expressing motivation to stay on the unit through the weekend to ensure tolerability and continued improvement from current medications. Mental Status Examination Appearance: Disheveled Consciousness: Alert Orientation: x4 Motor Activity: Normal gait Speech: Unremarkable Language: Adequate Fund of Knowledge: Adequate Attention and Concentration: Adequate Memory: Unremarkable Mood: Anxious Affect: Blunt Thought Process & Associations: Intact, Goal directed Thought Content: Appropriate Hallucination Type: None Delusion Type: None Suicidal Ideation: No Suicidal Plan: No Suicidal Intention: No Homicidal Ideation: No Insight: Fair Judgment: Impulsive Assessment and Plan - Assessment (1) Bipolar disorder, most recent episode depressed Code(s): F31.30 - Bipolar disorder, current episode depressed, mild or moderate severity, unspecified Status: Acute (2) Anxiety disorder, unspecified Code(s): F41.9 - Anxiety disorder, unspecified Status: Acute - Plan Plan: June 22, 2018: Good response to treatment, she is tolerating medication changes and her thought processes are much more organized and her activity level seems to be normalizing. Her complaints of severe anxiety would seem to be part of a chronic neuroses but the patient reports the intensity still remains above baseline she is fearful of recurrence of suicidal ideations if discharged too soon. Continue inpatient psychiatric treatment and stabilization. Increase Lamictal to 150 mg at bedtime per titration schedule for treatment of bipolar depression. Continue Latuda 40 mg a day for treatment of bipolar depression. Continue Zoloft 50 mg/day for treatment of anxiety but anticipate further increase to 100 mg a day once she is stabilized on full doses of her mood stabilizers. Discharge planning: The patient will return home after discharge and follow-up with [facility] in [facility]. Anticipate discharge by the end of the week. June 23, 2018: Patient's mood and affect remains stable but anxiety remains high and she would likely benefit from eventual increase of her SSRI but given today's GI upset we will wait until tomorrow to reconsider an increase of the Zoloft dose. Continue inpatient psychiatric treatment and stabilization. Anticipate discharge or Friday with follow-up at her regular outpatient mental health clinic. June 24, 2018: Good response to treatment as the patient's behavior is much more active and likely at her baseline but she continues to complain of severe anxiety that is most likely chronic but will require continued titration of her medications and supportive treatment while an inpatient in order to improve her confidence and motivation and further mitigate risks of recurrence as an outpatient. Continue inpatient psychiatric treatment and stabilization. Increase Zoloft to 100 mg/day for treatment of anxiety and depression. Anticipate discharge by Friday with follow-up at her regular outpatient mental health clinic. June 25, 2018: Fair response to treatment as the patient's behavior has been much more active and she seems to tolerate the milieu but continues to complain of a high level of anxiety and is certainly nervous about being discharged home without the support she is received in the hospital. Today's complaints of anxiety and restlessness on her inside is suspicious for EPS from the Latuda therefore we considered stopping Latuda versus starting an anticholinergic treatment for the symptoms that she chose to treat the symptoms. Continue inpatient psychiatric treatment and stabilization. Continue current medications doses unchanged. Start Cogentin 0.5 mg twice a day for EPS. Anticipate discharge early next week with follow-up with her regular outpatient mental health clinic. Justification for Continued Inpatient Stay: Patient remains an elevated risk for self-harm by self neglect and will require further inpatient stabilization and preparation of a safe discharge plan. Moving patient to a less restrictive environment at this time may result in decompensation.
[2018-06-25] MEDS: lamoTRIgine 100 MG Tablet PO SCH (20:49)
[2018-06-26] MEDS: Sertraline 100 MG Tablet PO SCH (09:30)
--- NOTE | 2018-06-26 11:33 | P.PNPSY ---
Subjective Chief Complaint: Depression with thoughts of ending her life Remarks: Patient seen for follow-up, chart reviewed, patient discussed with nursing staff ; we reviewed the patient's mood, thoughts, and behaviors from overnight and this morning. Nurse reports the patient slept 8 hours overnight. Patient was seen sitting quietly to herself in the day room after breakfast. Patient reports that she continues to wake up with severe anxiety but it does seem to get better throughout the day. She reports that her restless feelings have resolved since start of Cogentin. The patient denies any suicidal ideations or any paranoid delusions but she does not feel confident with discharge home at this time and prefers to remain inpatient through the weekend. Mental Status Examination Appearance: Disheveled Consciousness: Alert Orientation: x4 Motor Activity: Normal gait Speech: Unremarkable Language: Adequate Fund of Knowledge: Adequate Attention and Concentration: Adequate Memory: Unremarkable Mood: Anxious Affect: Blunt Thought Process & Associations: Intact, Goal directed Thought Content: Appropriate Hallucination Type: None Delusion Type: None Suicidal Ideation: No Suicidal Plan: No Suicidal Intention: No Homicidal Ideation: No Insight: Fair Judgment: Impulsive Assessment and Plan - Assessment (1) Bipolar disorder, most recent episode depressed Code(s): F31.30 - Bipolar disorder, current episode depressed, mild or moderate severity, unspecified Status: Acute (2) Anxiety disorder, unspecified Code(s): F41.9 - Anxiety disorder, unspecified Status: Acute - Plan Plan: June 22, 2018: Good response to treatment, she is tolerating medication changes and her thought processes are much more organized and her activity level seems to be normalizing. Her complaints of severe anxiety would seem to be part of a chronic neuroses but the patient reports the intensity still remains above baseline she is fearful of recurrence of suicidal ideations if discharged too soon. Continue inpatient psychiatric treatment and stabilization. Increase Lamictal to 150 mg at bedtime per titration schedule for treatment of bipolar depression. Continue Latuda 40 mg a day for treatment of bipolar depression. Continue Zoloft 50 mg/day for treatment of anxiety but anticipate further increase to 100 mg a day once she is stabilized on full doses of her mood stabilizers. Discharge planning: The patient will return home after discharge and follow-up with [facility] in [facility]. Anticipate discharge by the end of the week. June 23, 2018: Patient's mood and affect remains stable but anxiety remains high and she would likely benefit from eventual increase of her SSRI but given today's GI upset we will wait until tomorrow to reconsider an increase of the Zoloft dose. Continue inpatient psychiatric treatment and stabilization. Anticipate discharge or Friday with follow-up at her regular outpatient mental health clinic. June 24, 2018: Good response to treatment as the patient's behavior is much more active and likely at her baseline but she continues to complain of severe anxiety that is most likely chronic but will require continued titration of her medications and supportive treatment while an inpatient in order to improve her confidence and motivation and further mitigate risks of recurrence as an outpatient. Continue inpatient psychiatric treatment and stabilization. Increase Zoloft to 100 mg/day for treatment of anxiety and depression. Anticipate discharge by Friday with follow-up at her regular outpatient mental health clinic. June 25, 2018: Fair response to treatment as the patient's behavior has been much more active and she seems to tolerate the milieu but continues to complain of a high level of anxiety and is certainly nervous about being discharged home without the support she is received in the hospital. Today's complaints of anxiety and restlessness on her inside is suspicious for EPS from the Latuda therefore we considered stopping Latuda versus starting an anticholinergic treatment for the symptoms that she chose to treat the symptoms. Continue inpatient psychiatric treatment and stabilization. Continue current medications doses unchanged. Start Cogentin 0.5 mg twice a day for EPS. Anticipate discharge early next week with follow-up with her regular outpatient mental health clinic. June 26, 2018: Fair response to treatment, the patient is reporting less restlessness today but she continues to awaken with severe anxiety most likely due to negativistic dreams and a chronic history of worries. Patient is tolerating her medications with the help of Cogentin and there is no evidence of worsening mood lability since we titrated the SSRI. Continue inpatient treatment and stabilization. Continue medications unchanged. Anticipate discharge early next week with follow-up with her regular outpatient mental health clinic. Justification for Continued Inpatient Stay: Patient remains an elevated risk for self-harm by self neglect and a return of suicidal ideations and behaviors and therefore will require further inpatient stabilization and preparation of a safe discharge plan. Moving patient to a less restrictive environment at this time may result in decompensation.
--- NOTE | 2018-06-26 11:50 | P.TTN ---
- Patient Problems Problems: 1. Discharge planning 2. Medication compliance 3. Knowledge deficit 4. Lack of coping skills - Progress Toward Goals Provider Present: Other Provider Input: 06/26/18 Patient's medication is being changed. Continue to treat. 06/23/18 Patient continues to have restless nights. Med compliant. Continue with treatment. Nurse Input: 06/26/18 Patient continues to isolate, ineffective coping strategies , med compliant. 06/23/18 Patient is med compliant no behavioral problem on unit , restless sleeping Psychiatric Counselors Present: Gemma Devine [facility] Psychiatric Therapist Input: 06/26/18 Patient will return home once discharged. Patient presents child like, dishelved, disorganized. patient's medication is being changed. 06/23/18 Patient presenting better. Will go home when discharged. Patient is med compliant. Group Spec/RT/OT/DONALD Present: SHABANA Sesay Group Spec/RT/OT/DONADL Input: 06/26/18 Patient has been refusing to go to groups. 06/23/18 Patient does attend groups appropriately. - Documentation Teaching Recipient: Patient
[2018-06-26] MEDS: lamoTRIgine 100 MG Tablet PO SCH (21:21)
[2018-06-26] MEDS: LORazepam 0.5 MG Tablet PO PRN (21:25)
[2018-06-27] MEDS: Sertraline 100 MG Tablet PO SCH (09:29)
--- NOTE | 2018-06-27 11:51 | P.PNPSY ---
Subjective Chief Complaint: Depression with thoughts of ending her life Remarks: Reviewed electronic medical records and discussed case with staff. Follow-up was conducted in the day room with KATY Chowdhury present. Her nurse reports that she is doing well and the discharge planning is in progress. Patient reports that she slept well and has a good appetite. She states that she took an Ativan before she went to bed and woke up feeling much calmer this morning. She reports that her mood is "a little better I went out and did some recreation today". The only side effect she reports is feeling a little bit tired but overall reports that her mood is improving. Mental Status Examination Appearance: Disheveled Consciousness: Alert Orientation: x4 Motor Activity: Normal gait Speech: Unremarkable Language: Adequate Fund of Knowledge: Adequate Attention and Concentration: Adequate Memory: Unremarkable Mood: Anxious Affect: Blunt Thought Process & Associations: Intact, Goal directed Thought Content: Appropriate Hallucination Type: None Delusion Type: None Suicidal Ideation: No Suicidal Plan: No Suicidal Intention: No Homicidal Ideation: No Insight: Fair Judgment: Impulsive Assessment and Plan - Assessment (1) Bipolar disorder, most recent episode depressed Code(s): F31.30 - Bipolar disorder, current episode depressed, mild or moderate severity, unspecified Status: Acute (2) Anxiety disorder, unspecified Code(s): F41.9 - Anxiety disorder, unspecified Status: Acute - Plan Plan: Patient will be reevaluated by the attending psychiatrist. Continue with current treatment plan. Justification for Continued Inpatient Stay: Moving this patient to a less restrictive environment would likely result in decompensation.
[2018-06-27] MEDS: lamoTRIgine 100 MG Tablet PO SCH (21:09)
[2018-06-27] MEDS: LORazepam 0.5 MG Tablet PO PRN (21:44)
[2018-06-28] MEDS: Sertraline 100 MG Tablet PO SCH (09:24)
--- NOTE | 2018-06-28 09:28 | P.PNPSY ---
Subjective Chief Complaint: Depression with thoughts of ending her life Remarks: Reviewed electronic record and discussed with nursing staff. Rounded with KATY Monte. Patient is in day room engaging with other patients. She is discharge focused. She is sleeping and eating well. No mood swings, euthymic today. Feels that she has progressed and that she is doing well. Endorses no anxiety today. Denies SI/HI. Review of Systems All other systems reviewed negative except as stated in HPI Mental Status Examination Appearance: Disheveled Consciousness: Alert Orientation: x4 Motor Activity: Normal gait Speech: Unremarkable Language: Adequate Fund of Knowledge: Adequate Attention and Concentration: Adequate Memory: Unremarkable Mood: Appropriate, Anxious Affect: Euthymic, Blunt Thought Process & Associations: Intact, Goal directed Thought Content: Appropriate Hallucination Type: None Delusion Type: None Suicidal Ideation: No Suicidal Plan: No Suicidal Intention: No Homicidal Ideation: No Insight: Fair Judgment: Impulsive Assessment and Plan - Assessment (1) Bipolar disorder, most recent episode depressed Code(s): F31.30 - Bipolar disorder, current episode depressed, mild or moderate severity, unspecified Status: Acute (2) Anxiety disorder, unspecified Code(s): F41.9 - Anxiety disorder, unspecified Status: Acute - Plan Plan: Patient will be reevaluated by the attending psychiatrist. Continue with current treatment plan. Justification for Continued Inpatient Stay: Moving patient to a less restrictive environment may result in her decompensation.
[2018-06-28] MEDS: lamoTRIgine 100 MG Tablet PO SCH (20:22)
[2018-06-29] MEDS: Sertraline 100 MG Tablet PO SCH (08:49)
--- NOTE | 2018-06-29 13:30 | P.PNPSY ---
Subjective Chief Complaint: Depression with thoughts of ending her life Remarks: Patient seen for follow-up, chart reviewed, patient discussed with nursing staff ; we reviewed the patient's mood, thoughts, and behaviors from overnight and this morning. Nurse reports that the patient slept 6 hours overnight. She is described as having a bright affect and noted to smile and laugh appropriately. The patient was seen sitting in the day room conversing with nursing students. Upon approach by the provider she complains of continued anxiety and she does not feel safe for discharge. Patient was asks for specific worries or concerns she might have but she is unable to give specifics. The patient acknowledges that she has been feeling better but she continues to perseverate on the idea that she is just not ready for discharge. The patient was asked to consider what needs to be done for her to feel more confident in her discharge as we need to set a goal of discharge this week. Mental Status Examination Appearance: Disheveled Consciousness: Alert Orientation: x4 Motor Activity: Normal gait Speech: Unremarkable Language: Adequate Fund of Knowledge: Adequate Attention and Concentration: Adequate Memory: Unremarkable Mood: Anxious Affect: Euthymic, Blunt Thought Process & Associations: Intact, Goal directed Thought Content: Appropriate Hallucination Type: None Delusion Type: None Suicidal Ideation: No Suicidal Plan: No Suicidal Intention: No Homicidal Ideation: No Insight: Fair Judgment: Impulsive Assessment and Plan - Assessment (1) Bipolar disorder, most recent episode depressed Code(s): F31.30 - Bipolar disorder, current episode depressed, mild or moderate severity, unspecified Status: Acute (2) Anxiety disorder, unspecified Code(s): F41.9 - Anxiety disorder, unspecified Status: Acute - Plan Plan: June 29, 2018: Good response to treatment as evidenced by improved affect and behaviors within the psychiatric unit but the patient continues to lack confidence in her ability to maintain a stable mood in the outpatient and home setting. Continue current inpatient treatment plan and stabilization as the patient has been progressing with treatment despite continued complaints of anxiety and lack of confidence for discharge. Treatment team to remain solution focused with patient to ensure that she stays focused on her recovery and discharge home. Discharge planning: The patient has a place to stay and an outpatient clinic to follow-up with and we anticipate discharge this week. Justification for Continued Inpatient Stay: Patient remains an elevated risk for self-harm by self neglect and a return of suicidal ideations and behaviors and therefore will require further inpatient stabilization and preparation of a safe discharge plan. Moving patient to a less restrictive environment at this time may result in decompensation.
[2018-06-29] MEDS: lamoTRIgine 100 MG Tablet PO SCH (20:51)
[2018-06-29] MEDS: LORazepam 0.5 MG Tablet PO PRN (20:55)
--- NOTE | 2018-06-30 08:41 | P.TTN ---
- Patient Problems Problems: 1. Discharge planning 2. Medication compliance 3. Knowledge deficit 4. Lack of coping skills - Progress Toward Goals Provider Present: Other Provider Input: 06/30/18 Patient doing better possible discharge Friday. Continue treatment. 06/26/18 Patient's medication is being changed. Continue to treat. 06/23/18 Patient continues to have restless nights. Med compliant. Continue with treatment. Nurse Input: 06/30/18 Patient is doing better, med compliant, socializing more. 06/26/18 Patient continues to isolate, ineffective coping strategies, med compliant. 06/23/18 Patient is med compliant no behavioral problem on unit, restless sleeping Psychiatric Counselors Present: Gemma Devine [facility] Psychiatric Therapist Input: 06/30/18 Patient is doing better, will return home, med compliant, more social, thought not so disorganized. Pt is engaging more with conversation. 06/26/18 Patient will return home once discharged. Patient presents child like, dishelved, disorganized. patient's medication is being changed. 06/23/18 Patient presenting better. Will go home when discharged. Patient is med compliant. Group Spec/RT/OT/DONALD Present: SHABANA Sesay Group Spec/RT/OT/DONALD Input: 06/30/18 Patient is engaging in groups appropriately. 06/26/18 Patient has been refusing to go to groups. 06/23/18 Patient does attend groups appropriately. - Documentation Teaching Recipient: Patient
[2018-06-30] MEDS: Sertraline 100 MG Tablet PO SCH (08:49)
--- NOTE | 2018-06-30 11:05 | P.PNPSY ---
Subjective Chief Complaint: Depression with thoughts of ending her life Remarks: Patient seen for follow-up, chart reviewed, patient discussed with nursing staff ; we reviewed the patient's mood, thoughts, and behaviors from overnight and this morning. Nurse reports that the patient seemed to sleep okay and she has been in good spirits. When asked about discharge the patient reports "I am just not up to leaving quite yet it will take more time." Patient was seen sitting in the day room conversing with her peers. She reports feeling "a little better today" and seem more confident in discharge plans for this week. She was offered home health at discharge but declines due to concerns over her privacy. She denies any suicidal or homicidal ideations she denies any hallucinations. She expressed appreciation for the care and support she has received from her treatment team. Mental Status Examination Appearance: Disheveled Consciousness: Alert Orientation: x4 Motor Activity: Normal gait Speech: Unremarkable Language: Adequate Fund of Knowledge: Adequate Attention and Concentration: Adequate Memory: Unremarkable Mood: Anxious Affect: Euthymic, Blunt Thought Process & Associations: Intact, Goal directed Thought Content: Appropriate Hallucination Type: None Delusion Type: None Suicidal Ideation: No Suicidal Plan: No Suicidal Intention: No Homicidal Ideation: No Insight: Fair Judgment: Impulsive Assessment and Plan - Assessment (1) Bipolar disorder, most recent episode depressed Code(s): F31.30 - Bipolar disorder, current episode depressed, mild or moderate severity, unspecified Status: Acute (2) Anxiety disorder, unspecified Code(s): F41.9 - Anxiety disorder, unspecified Status: Acute - Plan Plan: June 29, 2018: Good response to treatment as evidenced by improved affect and behaviors within the psychiatric unit but the patient continues to lack confidence in her ability to maintain a stable mood in the outpatient and home setting. Continue current inpatient treatment plan and stabilization as the patient has been progressing with treatment despite continued complaints of anxiety and lack of confidence for discharge. Treatment team to remain solution focused with patient to ensure that she stays focused on her recovery and discharge home. Discharge planning: The patient has a place to stay and an outpatient clinic to follow-up with and we anticipate discharge this week. June 30, 2018: Continued good response to treatment and she continues to progress each day. Her depression symptoms have remitted but her anxiety remains moderate and will require more time on therapeutic doses for it is further alleviated. The patient is reporting improved confidence with discharge today and will likely be ready for discharge home later this week. Continue current treatment medications unchanged. Justification for Continued Inpatient Stay: Patient remains an elevated risk for self-harm by self neglect and a return of suicidal behavior therefore she will require further inpatient stabilization and preparation of a safe discharge plan. Moving patient to a less restrictive environment at this time may result in decompensation.
[2018-06-30] MEDS: lamoTRIgine 100 MG Tablet PO SCH (21:07)
[2018-06-30] MEDS: LORazepam 0.5 MG Tablet PO PRN (21:07)
[2018-07-01] MEDS: Sertraline 100 MG Tablet PO SCH (08:44)
--- NOTE | 2018-07-01 10:18 | P.PNPSY ---
Subjective Chief Complaint: Depression with thoughts of ending her life Remarks: Patient seen for follow-up, chart reviewed, patient discussed with nursing staff ; we reviewed the patient's mood, thoughts, and behaviors from overnight and this morning. Nursing reports the patient has slept well overnight and she woke up reporting that she is feeling good. She was observed sitting in the day room reading a book. Her affect was bright and her interactions with the provider were pleasant. We discussed discharge plans and she expressed continued anxiety about her ability to remain stable if discharged home today. She was advised that it would be helpful to set a goal for discharge tomorrow and work towards the anxiety with the treatment team and she agrees. She denies any homicidal or suicidal ideations and she is tolerating her medications. Mental Status Examination Appearance: Appropriate Consciousness: Alert Orientation: x4 Motor Activity: Normal gait Speech: Unremarkable Language: Adequate Fund of Knowledge: Adequate Attention and Concentration: Adequate Memory: Unremarkable Mood: Anxious Affect: Euthymic Thought Process & Associations: Intact, Goal directed Thought Content: Appropriate Hallucination Type: None Delusion Type: None Suicidal Ideation: No Suicidal Plan: No Suicidal Intention: No Homicidal Ideation: No Insight: Fair Judgment: Adequate Assessment and Plan - Assessment (1) Bipolar disorder, most recent episode depressed Code(s): F31.30 - Bipolar disorder, current episode depressed, mild or moderate severity, unspecified Status: Acute (2) Anxiety disorder, unspecified Code(s): F41.9 - Anxiety disorder, unspecified Status: Acute - Plan Plan: June 29, 2018: Good response to treatment as evidenced by improved affect and behaviors within the psychiatric unit but the patient continues to lack confidence in her ability to maintain a stable mood in the outpatient and home setting. Continue current inpatient treatment plan and stabilization as the patient has been progressing with treatment despite continued complaints of anxiety and lack of confidence for discharge. Treatment team to remain solution focused with patient to ensure that she stays focused on her recovery and discharge home. Discharge planning: The patient has a place to stay and an outpatient clinic to follow-up with and we anticipate discharge this week. June 30, 2018: Continued good response to treatment and she continues to progress each day. Her depression symptoms have remitted but her anxiety remains moderate and will require more time on therapeutic doses for it is further alleviated. The patient is reporting improved confidence with discharge today and will likely be ready for discharge home later this week. Continue current treatment medications unchanged. July 01, 2018: Patient continues to demonstrate positive improvement on a daily basis as manifested by improved affect, improved speech, improved confidence, and increased involvement with inpatient activities. The patient's reluctance to return home where her depression and anxiety reached a crescendo prior to admission is understandable but the patient agrees to work towards the goal of discharge tomorrow and the treatment team is available to support her in her action planning. Continue current medications unchanged and anticipate discharge home tomorrow with follow-up to be scheduled with her regular outpatient mental health clinic within 1 week of discharge. Justification for Continued Inpatient Stay: Patient remains an elevated risk for self-harm by worsening mood and anxiety with a consequence of psychosocial stressors resulting in suicidal behaviors and will require further inpatient stabilization and preparation of a safe discharge plan. Moving patient to a less restrictive environment at this time may result in decompensation.
[2018-07-01] MEDS: LORazepam 0.5 MG Tablet PO PRN (21:22)
[2018-07-01] MEDS: lamoTRIgine 100 MG Tablet PO SCH (21:23)
[2018-07-02 06:10] VITALS: RESP 16
[2018-07-02] MEDS: Sertraline 100 MG Tablet PO SCH (09:44)
--- NOTE | 2018-07-02 11:08 | P.PNPSY ---
Subjective Chief Complaint: Depression with thoughts of ending her life Remarks: Patient seen for follow-up, chart reviewed, patient discussed with nursing staff ; we reviewed the patient's mood, thoughts, and behaviors from overnight and this morning. Nurse reports that patient complained of increased anxiety overnight and only slept 6 hours. She complained of her medications not working right and needing to continue her admission until she felt more stable. Patient was observed sitting in the day room after breakfast talking with student nurses. Her affect appeared bright and she engaged politely in conversation. She does complain of continued anxiety and feelings of uncertainty with the safety of her discharge. Patient requested that we plan for discharge tomorrow so that she can ensure that her medications for treatment of mood and anxiety have further stabilized. Patient denies any active thoughts of suicide or homicidal ideations. She denies any auditory or visual hallucinations. Mental Status Examination Appearance: Appropriate Consciousness: Alert Orientation: x4 Motor Activity: Normal gait Speech: Unremarkable Language: Adequate Fund of Knowledge: Adequate Attention and Concentration: Adequate Memory: Unremarkable Mood: Anxious Affect: Euthymic Thought Process & Associations: Intact, Goal directed Thought Content: Appropriate Hallucination Type: None Delusion Type: None Suicidal Ideation: No Suicidal Plan: No Suicidal Intention: No Homicidal Ideation: No Insight: Fair Judgment: Adequate Assessment and Plan - Assessment (1) Bipolar disorder, most recent episode depressed Code(s): F31.30 - Bipolar disorder, current episode depressed, mild or moderate severity, unspecified Status: Acute (2) Anxiety disorder, unspecified Code(s): F41.9 - Anxiety disorder, unspecified Status: Acute - Plan Plan: June 29, 2018: Good response to treatment as evidenced by improved affect and behaviors within the psychiatric unit but the patient continues to lack confidence in her ability to maintain a stable mood in the outpatient and home setting. Continue current inpatient treatment plan and stabilization as the patient has been progressing with treatment despite continued complaints of anxiety and lack of confidence for discharge. Treatment team to remain solution focused with patient to ensure that she stays focused on her recovery and discharge home. Discharge planning: The patient has a place to stay and an outpatient clinic to follow-up with and we anticipate discharge this week. June 30, 2018: Continued good response to treatment and she continues to progress each day. Her depression symptoms have remitted but her anxiety remains moderate and will require more time on therapeutic doses for it is further alleviated. The patient is reporting improved confidence with discharge today and will likely be ready for discharge home later this week. Continue current treatment medications unchanged. July 01, 2018: Patient continues to demonstrate positive improvement on a daily basis as manifested by improved affect, improved speech, improved confidence, and increased involvement with inpatient activities. The patient's reluctance to return home where her depression and anxiety reached a crescendo prior to admission is understandable but the patient agrees to work towards the goal of discharge tomorrow and the treatment team is available to support her in her action planning. Continue current medications unchanged and anticipate discharge home tomorrow with follow-up to be scheduled with her regular outpatient mental health clinic within 1 week of discharge. July 02, 2018: Good overall response to treatment but patient continues to suffer from significant levels of anxiety that are currently triggered by the uncertainty of her treatment and long-term prognosis. She continues to demonstrate an effect from the inpatient treatment plan as her mood, affect and behaviors improved slightly each day therefore continued inpatient treatment recommended to further ensure stability and good prognosis with a sustained recovery after discharge. Anticipate discharge home tomorrow morning. Justification for Continued Inpatient Stay: Patient remains an elevated risk for self-harm by acting out on suicidal ideations when overwhelmed by depression and anxiety and will require further inpatient stabilization and preparation of a safe discharge plan. Moving patient to a less restrictive environment at this time may result in decompensation.
[2018-07-02] MEDS: lamoTRIgine 100 MG Tablet PO SCH (20:55)
[2018-07-02] MEDS: LORazepam 0.5 MG Tablet PO PRN (21:45)
[2018-07-03 06:10] VITALS: BP 104/57; PULSE 70; TEMP 96.3; O2SAT 95
[2018-07-03] MEDS: Sertraline 100 MG Tablet PO SCH (09:27)
--- NOTE | 2018-07-03 12:25 | P.DSPSY ---
Psychiatry Discharge Summary Inpatient Psychiatric care?: Yes Advance Directives: No Reason for Unknown:: Other Mental Health Advance Directive: No Health Care Proxy: No - Admission Admission Date: June 14, 2018 18:54 - Admission Diagnosis (1) Bipolar disorder, most recent episode depressed Code(s): F31.30 - Bipolar disorder, current episode depressed, mild or moderate severity, unspecified (2) Anxiety disorder, unspecified Code(s): F41.9 - Anxiety disorder, unspecified Brief History: The patient is a 68-year-old female who was a direct transfer to [facility] inpatient psych unit from [facility] under a medical physicians Lynch act order for depression and suicidal ideations. According to the Lynch act report, the patient has a history of depression and presented complaining of auditory hallucinations and a plan to hurt her self. Patient reports that it was her son who became concerned and took her to the hospital. The patient admits to "I have been very anxious and nervous I cannot eat and I cannot sleep I have episodes of confusion and racing thoughts and I cannot pinpoint why I am feeling this way." Patient reports that she last felt stable "a few months ago" and cannot recall any specific stress that led to a decrease in her mood. She reports that she did move in with a friend a couple months ago but she reports that the friend and her are getting along fine. She denies any conflict with family and denies any financial stressors. As for her depression, she endorses a worsening depression and irritability over the last 2 months with symptoms of increased need for sleep, decreased interest, increased feelings of hopelessness and helplessness, decreased energy , decreased concentration, decreased appetite, decreased psychomotor activity, and fleeting thoughts that she would rather be . She denies any plans preparations or intent to kill herself. As for anxiety, she reports chronic anxiety characterized as chronic worries and intermittent anxiety attacks with intermittent bouts of a [place] phobia. She admits that her anxiety and fear of leaving the house has worsened over the last couple of months. She reports having anxiety attacks daily. As for psychosis, the patient and endorses that she is "hearing things" but she cannot understand what is being said or at least will not admit to it. She denies any paranoid delusions. She denies a history of auditory hallucinations prior to this past month. As for arsalan, patient reports cyclical moods that are mostly depressed but intermittently high moods with increased goal-directed activity decreased need for sleep and increased irritability with others. Patient reports that she feels like she is in 1 of her depressed moods currently. Past psychiatric history: Past Diagnoses: Bipolar disorder, anxiety disorder Hospitalizations: Patient reports 4 prior hospitalizations the last was in 2017 Suicidal behavior: Patient admits to overdose on pills many years ago Past psychotropic medication trials: The patient has most recently been tried on Zoloft 50 mg a day and Lamictal 25 mg twice a day, started approximately 6 weeks ago by her outpatient psychiatrist. Patient is also been treated with Zyprexa and Prozac in the past but were ineffective. She also reports lithium was ineffective. She has allergies to Depakote and Seroquel. Outpatient treatment: Patient reports being followed by the [facility] in [place]. She was last seen approximately 4 weeks ago. Substance Use Treatment: Denies Abuse/assault history: Denies Family psychiatric history: Patient's son has PTSD from combat. She denies any history of suicides in her family Psychosocial history: Patient was born and raised in [facility]. 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 She has been and twice and has 2 adult sons. She currently lives with a roommate in the [facility] area. She denies ever being on disability and currently collects income from Social Security. She denies any history of arrests and no acute legal stressors. Substance Use history: Urine drug scree on exam in ED was negative. Tobacco use: Denies Alcohol use: Denies Cannabis use: Denies Stimulant use: Denies Opiate use: Denies Prescription drug abuse: Denies Past medical history: Contributing medical conditions include--arthritic pain and an acute UTI. She denies a history of seizures. Lab results: Lab results from [facility] were reviewed and were significant only for a urinalysis consistent with a urinary tract infection. Tobacco Use In Past 30 Days: No How Often Do You Have a Drink Containing Alcohol: Never Hospital Course: Hospital course: Patient was admitted to a locked, inpatient psychiatric unit. Appropriate precautions were in place throughout patient's hospital stay. Patient was seen and examined on the unit by psychiatry and also visited by counselor. Psychotropic medications adjusted based on clinical indications and remained well tolerated. The patient's Lamictal dose was increased to more therapeutic level and she tolerated 150 mg at bedtime. Patient was started on Latuda for adjunctive treatment of bipolar depression and tolerated dose of 40 mg. Patient did require Cogentin 0.5 mg twice a day to be added for symptoms to EPS. Patient Zoloft dose was increased from 25 mg a day up to 100 mg a day with good effect and tolerability. Patient did use Ativan 0.5 mg once daily as needed for anxiety usually in the evening. There was a good response to inpatient treatment plan noted by nursing and provider observations, and the patient reported improvements in mood, anxiety, and there was no evidence of any hallucinations, delusions, suicidality or homicidality at time of discharge. Psychiatric follow-up as arranged by counselor. Patient is also to follow up with primary care. I have counseled the patient to abstain from substances of abuse including cannabis and have counseled patient to return to the psychiatric emergency room for any concerning symptoms as part of a general safety plan. Weighing the acute, chronic, and protective factors and based on the available evidence, I army manager that the patient does not presently meet criteria for involuntary psychiatric hospitalization. Suicide risk assessment on day of discharge suggest lower than imminent risk from mental illness. Patient is denying suicidal ideation. There is no evidence of impairment in reality construction. We will bolster protective factors by relinking the patient with outpatient psychiatric services. There is no evidence of self-care deficit at time of discharge. There is no evidence to support an involuntary hospitalization therefore discharge order placed per patient's request. Patient has maximized benefit from this inpatient psychiatric hospital stay. Discharge medications include prescriptions for Cogentin 0.5 mg twice a day #60 refill 0, lamotrigine 150 mg take 1 tablet at bedtime #30 refill 0, Zoloft 100 mg take 1 tablet by mouth every morning #30 refill 0, Latuda 40 mg take 1 tablet by mouth every morning #30 refill 0, Ativan 0.5 mg take 1 tablet every 12 hours as needed for anxiety #14 refill 0. - Discharge Discharge Date: 07/03/18 - Discharge Diagnosis (1) Bipolar disorder, most recent episode depressed Code(s): F31.30 - Bipolar disorder, current episode depressed, mild or moderate severity, unspecified Status: Acute (2) Anxiety disorder, unspecified Code(s): F41.9 - Anxiety disorder, unspecified Status: Acute Discharge Disposition: Home - Discharge Time > 30 minutes Mental Status Examination Appearance: Appropriate Consciousness: Alert Orientation: x4 Motor Activity: Normal gait Speech: Unremarkable Language: Adequate Fund of Knowledge: Adequate Attention and Concentration: Adequate Memory: Unremarkable Mood: Anxious Affect: Euthymic Thought Process & Associations: Intact, Goal directed Thought Content: Appropriate Hallucination Type: None Delusion Type: None Suicidal Ideation: No Suicidal Plan: No Suicidal Intention: No Homicidal Ideation: No Insight: Fair Judgment: Adequate Discharge/Advance Care Plan - Results Vital Signs: Last Vital Signs Temp 96.3 F L 07/03/18 06:00 Pulse 70 07/03/18 06:00 Resp 16 07/03/18 06:00 BP 104/57 L 07/03/18 06:00 Pulse Ox 95 07/03/18 06:00 Lab Results: Laboratory Results TSH 0.616 uIU/mL (0.358-3.740) 06/16/18 06:50 Free T4 1.27 ng/dL (0.76-1.46) 06/16/18 06:50 Urine Culture Comments Culture indicated 06/16/18 14:29 Summary of Procedures: None ordered Pending Results: None - Medications Number of antipsychotic medications at discharge: 1 - Discharge Care Plan Goals to Promote Your Health: * To prevent worsening of your condition and complications * To maintain your health at the optimal level Directions to Meet Your Goals: Take your medications as prescribed Follow your dietary instruction Follow activity as directed Keep your appointments as scheduled Take your immunizations and boosters as scheduled If your symptoms worsen call your PCP, if no PCP go to Urgent Care Center or Emergency Room For 02/12 questions related to your inpatient stay or results of tests pending at discharge, please contact Dr. Kee Thomas MD at Smoking is Dangerous to Your Health. Avoid second hand smoking
== END 2018-07-03 18:30 | disposition home or self-care (01) | DRG 885 ==
LOC: H260 18:54
PROVIDERS: ADMIT Psychiatry & Neurology Psychiatry; ATTEND Psychiatry & Neurology Psychiatry